=== PATIENT | female | born 1990 | race African-American/Black ===

== ENCOUNTER 2018-12-24 15:54 | Inpatient (IN) ==
[2018-12-24] MEDS ORDERED: LACTATED RINGERS 250 ML IV ONE (16:17)
[2018-12-24] MEDS ORDERED: LACTATED RINGERS 500 ML IV PRN (16:17)
[2018-12-24] MEDS ORDERED: ONDANSETRON 4 MG/2 ML VIAL IV PRN (16:17)
[2018-12-24] MEDS ORDERED: LACTATED RINGERS 1,000 ML IV SCH (16:30)
[2018-12-24 17:21] LABS: Basophils % 0.5 % (0.0-0.8); Eosinophils # 0.3 10*3/uL (0.0-0.87); Eosinophils % 3.6 % (0.00-10.9); Hematocrit 38.9 VOL% (35.7-47.0); Hemoglobin 12.6 GM/DL (12.0-16.0); Immature Granulocytes % 0.2 %; Immature Granulocytes Absolute 0.02 #; Lymphocytes # 2.1 10*3/uL (1.4-4.0); Lymphocytes % 24.7 % (21.3-54.2); Mean Corpuscular HGB Conc 32.4 GM/DL (32-36); Mean Corpuscular Volume 94.4 FL (87-102); Mean Platelet Volume 10.2 FL (9.6-12.0); Monocytes % 9.3 % (1.7-12.7); Neutrophils % 61.7 % (38.7-73.9); Platelet Count 223 T/CUMM (130-400); Red Blood Count 4.12 MC/CUMM (3.8-5.5); Red Cell Distribution Width 13.5 % (9.3-17.3); White Blood Count 8.4 T/CUMM (4-12)
[2018-12-24] MEDS ORDERED: miSOPROStol 200 MCG TABLET ONE (17:46)
[2018-12-24 17:51] LABS: Alanine Aminotransferase 17 U/L (13-56); Albumin 3.3 G/DL (3.4-5.0); Alkaline Phosphatase 65 U/L (45-117); Aspartate Amino Transferase 17 U/L (0-37); Bilirubin,Total < 0.39 MG/DL (0.2-1.0); Blood Urea Nitrogen 10 MG/DL (7-18); Calcium 9.1 MG/DL (8.5-10.1); Glucose 70 MG/DL (74-106); Osmolality,Calculated 271.7 MOS/KG (273-304); Total Protein 7.4 G/DL (6.4-8.3)
[2018-12-24] MEDS ORDERED: miSOPROStol 200 MCG TABLET VAG ONE (18:00)
[2018-12-24] MEDS: BUTORPHANOL 2 MG/ML VIAL IV PRN ×2 (18:11→22:03)
[2018-12-24] MEDS: miSOPROStol 200 MCG TABLET VAG SCH (22:04)
[2018-12-25] MEDS ORDERED: LORazepam 1 MG TABLET PO PRN (00:04)
[2018-12-25] MEDS ORDERED: LORazepam 2 MG/1 ML VIAL IV PRN (00:14)
[2018-12-25] MEDS ORDERED: MEPERIDINE 25 MG/1 ML VIAL ONE ×2 (00:29→02:37)
[2018-12-25] MEDS: MEPERIDINE 50 MG/1 ML VIAL IV PRN ×2 (00:37→02:44)
[2018-12-25] MEDS ORDERED: CLINDAMYCIN INJ 900 MG in PREMIX 1 EACH IV SCH (01:30)
[2018-12-25] MEDS ORDERED: OXYTOCIN/LR 20 UNIT/1,000 ML BAG IV SCH ×2 (02:00→06:00)
[2018-12-25 02:01] LABS: Basophils % 0.3 % (0.0-0.8); Eosinophils # 0.1 10*3/uL (0.0-0.87); Eosinophils % 0.6 % (0.00-10.9); Hematocrit 36.3 VOL% (35.7-47.0); Immature Granulocytes % 0.6 %; Immature Granulocytes Absolute 0.07 #; Lymphocytes # 1.3 10*3/uL (1.4-4.0); Lymphocytes % 10.7 % (21.3-54.2); Mean Corpuscular HGB Conc 33.1 GM/DL (32-36); Mean Corpuscular Volume 92.8 FL (87-102); Mean Platelet Volume 10.3 FL (9.6-12.0); Monocytes % 6.8 % (1.7-12.7); Platelet Count 230 T/CUMM (130-400); Red Blood Count 3.91 MC/CUMM (3.8-5.5); Red Cell Distribution Width 13.3 % (9.3-17.3); White Blood Count 11.8 T/CUMM (4-12)
[2018-12-25] MEDS: miSOPROStol 200 MCG TABLET VAG SCH ×2 (02:01→03:14)
[2018-12-25] MEDS ORDERED: OXYTOCIN/LR 20 UNIT/1,000 ML BAG IV ONE ×2 (02:11→05:41)
[2018-12-25] MEDS ORDERED: CITRIC ACID/SODIUM CITRATE 30 ML UDCUP PO ONE (04:11)
[2018-12-25] MEDS ORDERED: FAMOTIDINE 20 MG/2 ML VIAL IV ONE (04:14)
[2018-12-25] MEDS ORDERED: OXYTOCIN/LR 30 UNIT/1,000 ML BAG IV ONE (04:17)
[2018-12-25] MEDS ORDERED: BISACODYL 10 MG SUPP RECTAL PRN (05:41)
[2018-12-25] MEDS ORDERED: DIPH/TET/ACEL PERT BOOSTER VACCINE 0.5 ML VIAL IM ONE (05:41)
[2018-12-25] MEDS ORDERED: HYDROCORTISONE 2.5% RECTAL CREAM 30 GM TUBE TOP PRN (05:41)
[2018-12-25] MEDS ORDERED: ONDANSETRON 4 MG/2 ML VIAL IV PRN (05:41)
[2018-12-25] MEDS ORDERED: IBUPROFEN 800 MG TABLET PO PRN (05:41)
[2018-12-25] MEDS ORDERED: MEASLES/MUMPS/RUBELLA VACCINE 0.5 ML VIAL SUBCUT ONE (05:41)
[2018-12-25] MEDS ORDERED: RHO(D) IMMUNE GLOBULIN 300 MCG SYRINGE IM ONE (05:41)
[2018-12-25] MEDS ORDERED: LANOLIN 50% CREAM 0.3 OZ TUBE TOP PRN (05:41)
[2018-12-25] MEDS ORDERED: BENZOCAINE 20%/MENTHOL 0.5% SPRAY 56 GM CAN TOP PRN (05:41)
[2018-12-25] MEDS ORDERED: WITCH HAZEL PADS 100/JAR TOP PRN (05:41)
[2018-12-25] MEDS ORDERED: oxyCODONE/ACETAMINOPHEN 5-325 MG TABLET PO PRN ×2 (05:41)
[2018-12-25] MEDS ORDERED: ACETAMINOPHEN 325 MG TABLET PO PRN (05:41)
[2018-12-25] MEDS ORDERED: PROPOFOL 200 MG/20 ML VIAL IV ONE (05:54)
[2018-12-25] MEDS ORDERED: MIDAZOLAM 2 MG/2 ML VIAL ONE (05:55)
[2018-12-25] MEDS ORDERED: KETOROLAC 30 MG/1 ML VIAL ONE (05:55)
[2018-12-25] MEDS ORDERED: DEXAMETHASONE 4 MG/1 ML VIAL ONE (05:55)
[2018-12-25] MEDS ORDERED: ONDANSETRON 4 MG/2 ML VIAL ONE (05:55)
[2018-12-25] MEDS ORDERED: ALBUTEROL 1.25 MG/3 ML NEB RESP TX ONE (06:46)
[2018-12-25] MEDS: DOCUSATE SODIUM 100 MG CAPSULE PO SCH ×2 (10:50→21:30)
[2018-12-26 04:32] LABS: Basophils # 0.1 10*3/uL (0.0-0.2); Basophils % 0.5 % (0.0-0.8); Eosinophils # 0.3 10*3/uL (0.0-0.87); Eosinophils % 3.1 % (0.00-10.9); Hematocrit 32.8 VOL% (35.7-47.0); Hemoglobin 10.5 GM/DL (12.0-16.0); Immature Granulocytes % 0.7 %; Immature Granulocytes Absolute 0.07 #; Lymphocytes # 2.7 10*3/uL (1.4-4.0); Lymphocytes % 26.3 % (21.3-54.2); Mean Corpuscular Volume 95.6 FL (87-102); Mean Platelet Volume 10.3 FL (9.6-12.0); Monocytes % 5.7 % (1.7-12.7); Neutrophils % 63.7 % (38.7-73.9); Platelet Count 196 T/CUMM (130-400); Red Blood Count 3.43 MC/CUMM (3.8-5.5); Red Cell Distribution Width 13.4 % (9.3-17.3); White Blood Count 10.3 T/CUMM (4-12)
[2018-12-26] MEDS: DOCUSATE SODIUM 100 MG CAPSULE PO SCH (09:35)
[2018-12-26 11:08] VITALS: BP 94/55
== END 2018-12-26 14:10 | disposition home or self-care (01) | DRG 541 ==
LOC: N.LDOUT 15:54 → N.LD 15:54 → N.OB 12-25 06:44
PROVIDERS: ADMIT Obstetrics & Gynecology; ATTEND Obstetrics & Gynecology

== ENCOUNTER 2020-03-29 14:27 | Inpatient (IN) ==
[2020-03-29] MEDS ORDERED: DINOPROSTONE VAG GEL 10 MG SYRINGE VAG ONE ×2 (14:39→14:55)
[2020-03-29] MEDS ORDERED: BUTORPHANOL 2 MG/ML VIAL IV PRN (14:51)
[2020-03-29] MEDS ORDERED: ONDANSETRON 4 MG/2 ML VIAL IV PRN (14:51)
[2020-03-29] MEDS ORDERED: MEPERIDINE 50 MG/1 ML VIAL IV PRN (14:51)
[2020-03-29 15:11] LABS: Basophils % 0.4 % (0.0-0.8); Eosinophils # 0.2 10*3/uL (0.0-0.87); Eosinophils % 2.1 % (0.00-10.9); Hematocrit 37.8 VOL% (35.7-47.0); Hemoglobin 12.3 GM/DL (12.0-16.0); Immature Granulocytes Absolute 0.11 #; Lymphocytes # 1.6 10*3/uL (1.4-4.0); Mean Corpuscular HGB Conc 32.5 GM/DL (32-36); Mean Corpuscular Volume 90.4 FL (87-102); Mean Platelet Volume 11.4 FL (9.6-12.0); Monocytes % 6.5 % (1.7-12.7); Platelet Count 188 T/CUMM (130-400); Red Blood Count 4.18 MC/CUMM (3.8-5.5); Red Cell Distribution Width 15.6 % (9.3-17.3); White Blood Count 10.6 T/CUMM (4-12)
[2020-03-29] MEDS ORDERED: OXYTOCIN/LR 0 UNIT/0 ML BAG IV ONE (20:53)
[2020-03-30] MEDS: LACTATED RINGERS 1,000 ML IV SCH ×2 (01:55→04:56)
[2020-03-30] MEDS ORDERED: OXYTOCIN/LR 20 UNIT/1,000 ML BAG IV SCH (02:00)
[2020-03-30] MEDS ORDERED: PROMETHAZINE 25 MG/1 ML VIAL IM ONE (04:33)
[2020-03-30] MEDS ORDERED: diphenhydrAMINE 50 MG/1 ML VIAL IV PRN ×2 (04:33)
[2020-03-30] MEDS ORDERED: CITRIC ACID/SODIUM CITRATE 30 ML UDCUP PO ONE (04:33)
[2020-03-30] MEDS ORDERED: NALOXONE 0.4 MG/ML VIAL IV PRN (04:33)
[2020-03-30] MEDS ORDERED: hydrOXYzine HCL 25 MG/1 ML VIAL IM PRN (04:33)
[2020-03-30] MEDS ORDERED: FAMOTIDINE 20 MG/2 ML VIAL IV ONE (04:33)
[2020-03-30] MEDS ORDERED: fentaNYL 2 MCG/ROPIV 0.2% EPID 100 ML EPIDURAL SCH (05:00)
[2020-03-30 06:04] LABS: Apearance,Urine CLEAR (Clear); Bacteria,Urine Occasional /HPF (Few); Bilirubin,Urine Negative (Negative); Blood, Urine Negative (Negative); Glucose,Urine (UA) Negative (Negative); Ketones,Urine Negative (Negative); Mucus,Urine Occasional /LPF (Occasional); Nitrite,Urine Negative (Negative); Protein,Urine Negative; RBC,Urine <1 /HPF (0-4); Squamous Epithelial Cell,Urine Occasional /HPF (0-10); Urine Color Yellow (Yellow); Urine Urobilinogen < 2.0 EU/DL (0.2-1.0); WBC,Urine <1 /HPF (0-6)
[2020-03-30] MEDS: ePHEDrine 50 MG/ML VIAL IV PRN ×2 (06:15→06:20)
[2020-03-30] MEDS ORDERED: OXYTOCIN/LR 20 UNIT/1,000 ML BAG IV ONE ×2 (07:19→11:53)
[2020-03-30] MEDS ORDERED: TRANEXAMIC ACID 1,000 MG/10 ML VIAL ONE (07:19)
[2020-03-30] MEDS ORDERED: miSOPROStoL 200 MCG TABLET ONE (07:19)
[2020-03-30] MEDS ORDERED: METHYLERGONOVINE 0.2 MG/1 ML AMP ONE (07:20)
[2020-03-30] MEDS ORDERED: CARBOPROST TROMETHAMINE 250 MCG/ML AMP IM ONE (07:20)
[2020-03-30] MEDS ORDERED: LIDOCAINE 1% 50 ML VIAL ONE (07:20)
[2020-03-30] MEDS ORDERED: RHO(D) IMMUNE GLOBULIN 300 MCG SYRINGE IM ONE (11:53)
[2020-03-30] MEDS ORDERED: WITCH HAZEL PADS 100/JAR TOP PRN (11:53)
[2020-03-30] MEDS ORDERED: BENZOCAINE 20%/MENTHOL 0.5% SPRAY 56 GM CAN TOP PRN (11:53)
[2020-03-30] MEDS ORDERED: DIPH/TET/ACEL PERT BOOSTER VACCINE 0.5 ML VIAL IM ONE (11:53)
[2020-03-30] MEDS ORDERED: ACETAMINOPHEN 325 MG TABLET PO PRN (11:53)
[2020-03-30] MEDS ORDERED: HYDROCORTISONE 2.5% RECTAL CREAM 30 GM TUBE TOP PRN (11:53)
[2020-03-30] MEDS ORDERED: oxyCODONE/ACETAMINOPHEN 5-325 MG TABLET PO PRN (11:53)
[2020-03-30] MEDS ORDERED: LANOLIN 50% CREAM 0.3 OZ TUBE TOP PRN (11:53)
[2020-03-30] MEDS ORDERED: BISACODYL 10 MG SUPP RECTAL PRN (11:53)
[2020-03-30] MEDS ORDERED: MEASLES/MUMPS/RUBELLA VACCINE 0.5 ML VIAL SUBCUT ONE (11:53)
[2020-03-30] MEDS: IBUPROFEN 800 MG TABLET PO PRN ×3 (12:06→23:59)
[2020-03-30] MEDS: oxyCODONE/ACETAMINOPHEN 5-325 MG TABLET PO PRN ×2 (18:28→23:59)
[2020-03-30] MEDS: DOCUSATE SODIUM 100 MG CAPSULE PO SCH (20:22)
[2020-03-31 05:56] LABS: Basophils # 0.1 10*3/uL (0.0-0.2); Basophils % 0.4 % (0.0-0.8); Eosinophils # 0.4 10*3/uL (0.0-0.87); Eosinophils % 3.4 % (0.00-10.9); Hematocrit 34.5 VOL% (35.7-47.0); Hemoglobin 11.1 GM/DL (12.0-16.0); Immature Granulocytes Absolute 0.12 #; Lymphocytes # 2.5 10*3/uL (1.4-4.0); Lymphocytes % 20.6 % (21.3-54.2); Mean Corpuscular HGB Conc 32.2 GM/DL (32-36); Mean Corpuscular Volume 91.8 FL (87-102); Mean Platelet Volume 11.5 FL (9.6-12.0); Monocytes % 6.6 % (1.7-12.7); Platelet Count 158 T/CUMM (130-400); Red Blood Count 3.76 MC/CUMM (3.8-5.5); Red Cell Distribution Width 15.7 % (9.3-17.3); White Blood Count 12.2 T/CUMM (4-12)
[2020-03-31] MEDS: DOCUSATE SODIUM 100 MG CAPSULE PO SCH ×3 (09:11→22:39)
[2020-03-31] MEDS: IBUPROFEN 800 MG TABLET PO PRN ×2 (09:12→19:33)
[2020-04-01 08:39] VITALS: BP 110/61
[2020-04-01] MEDS: DOCUSATE SODIUM 100 MG CAPSULE PO SCH (09:15)
== END 2020-04-01 13:15 | disposition home or self-care (01) | DRG 560 ==
LOC: N.LDOUT 14:27 → N.LD 14:30 → N.OB 03-30 13:01
PROVIDERS: ADMIT Obstetrics & Gynecology; ATTEND Obstetrics & Gynecology

== ENCOUNTER 2022-08-08 04:36 | Inpatient (IN) ==
[2022-08-08] MEDS ORDERED: LACTATED RINGERS 500 ML IV PRN (04:41)
[2022-08-08] MEDS ORDERED: miSOPROStoL 200 MCG TABLET RECTAL PRN (04:41)
[2022-08-08] MEDS ORDERED: ONDANSETRON 4 MG/2 ML VIAL IV PRN ×2 (04:41→09:20)
[2022-08-08] MEDS ORDERED: CARBOPROST TROMETHAMINE 250 MCG/ML AMP IM PRN (04:41)
[2022-08-08] MEDS ORDERED: TRANEXAMIC ACID 1,000 MG in SODIUM CHLORIDE 0.9% 100 ML IV PRN (04:41)
[2022-08-08] MEDS ORDERED: METHYLERGONOVINE 0.2 MG/1 ML AMP IM PRN (04:41)
[2022-08-08] MEDS ORDERED: OXYTOCIN/LR 20 UNIT/1,000 ML BAG IV ONE ×3 (04:41→09:20)
[2022-08-08] MEDS: LACTATED RINGERS 1,000 ML IV SCH ×2 (04:50→05:37)
[2022-08-08] MEDS ORDERED: NALOXONE 0.4 MG/ML VIAL IV PRN (04:51)
[2022-08-08] MEDS ORDERED: hydrOXYzine HCL 25 MG/1 ML VIAL IM PRN (04:51)
[2022-08-08] MEDS ORDERED: ePHEDrine 50 MG/ML VIAL IV PRN ×2 (04:51)
[2022-08-08] MEDS ORDERED: CITRIC ACID/SODIUM CITRATE 30 ML UDCUP PO ONE (04:51)
[2022-08-08] MEDS ORDERED: FAMOTIDINE 20 MG/2 ML VIAL IV ONE (04:51)
[2022-08-08] MEDS ORDERED: diphenhydrAMINE 50 MG/1 ML VIAL IV PRN ×2 (04:51)
[2022-08-08] MEDS ORDERED: ONDANSETRON 4 MG/2 ML VIAL IV ONE (04:51)
[2022-08-08] MEDS ORDERED: PROMETHAZINE 25 MG/1 ML VIAL IM ONE (04:51)
[2022-08-08] MEDS ORDERED: OXYTOCIN/LR 20 UNIT/1,000 ML BAG IV SCH (05:00)
[2022-08-08] MEDS ORDERED: fentaNYL 2 MCG/ROPIV 0.2% EPID 100 ML EPIDURAL SCH (05:00)
[2022-08-08 05:04] LABS: Basophils % 0.3 % (0.0-0.8); Eosinophils # 0.2 10*3/uL (0.0-0.87); Hematocrit 37.5 VOL% (35.7-47.0); Hemoglobin 12.5 GM/DL (12.0-16.0); Lymphocytes # 2.2 10*3/uL (1.4-4.0); Lymphocytes % 23.3 % (21.3-54.2); Mean Corpuscular HGB Conc 33.3 GM/DL (32-36); Mean Corpuscular Volume 88.9 FL (87-102); Mean Platelet Volume 11.7 FL (9.6-12.0); Monocytes # 0.8 10*3/uL (0.11-0.8); Monocytes % 8.1 % (1.7-12.7); Neutrophils % 65.3 % (38.7-73.9); Platelet Count 163 T/CUMM (130-400); Red Blood Count 4.22 MC/CUMM (3.8-5.5); Red Cell Distribution Width 14.7 % (9.3-17.3); White Blood Count 9.6 T/CUMM (4-12)
[2022-08-08] MEDS ORDERED: MEPERIDINE 50 MG/1 ML VIAL IV ONE (05:15)
[2022-08-08] MEDS ORDERED: METHYLERGONOVINE 0.2 MG/1 ML AMP ONE (07:42)
[2022-08-08] MEDS ORDERED: SODIUM CHLORIDE 0.9% 0 ML IV ONE (07:42)
[2022-08-08] MEDS ORDERED: TRANEXAMIC ACID 1,000 MG/10 ML VIAL ONE (07:42)
[2022-08-08] MEDS ORDERED: CARBOPROST TROMETHAMINE 250 MCG/ML AMP IM ONE (07:42)
[2022-08-08] MEDS ORDERED: miSOPROStoL 200 MCG TABLET ONE (07:42)
[2022-08-08] MEDS ORDERED: OXYTOCIN/LR 30 UNIT/1,000 ML BAG IV ONE (07:48)
[2022-08-08 09:13] LABS: Cord Venous Blood PCO2 36.2 MMHG; Cord Venous Blood PO2 47.1
[2022-08-08 09:15] LABS: Cord Arterial Blood HCO3 21.6 MMOL/L
[2022-08-08] MEDS ORDERED: HYDROCORTISONE 2.5% RECTAL CREAM 30 GM TUBE TOP PRN (09:20)
[2022-08-08] MEDS ORDERED: LANOLIN 50% CREAM 0.3 OZ TUBE TOP PRN (09:20)
[2022-08-08] MEDS ORDERED: oxyCODONE/ACETAMINOPHEN 5-325 MG TABLET PO PRN (09:20)
[2022-08-08] MEDS ORDERED: RHO(D) IMMUNE GLOBULIN 300 MCG SYRINGE IM ONE (09:20)
[2022-08-08] MEDS ORDERED: DIPH/TET/ACEL PERT BOOSTER VACCINE 0.5 ML VIAL IM ONE (09:20)
[2022-08-08] MEDS ORDERED: MEASLES/MUMPS/RUBELLA VACCINE 0.5 ML VIAL SUBCUT ONE (09:20)
[2022-08-08] MEDS ORDERED: BENZOCAINE 20%/MENTHOL 0.5% SPRAY 56 GM CAN TOP PRN (09:20)
[2022-08-08] MEDS ORDERED: WITCH HAZEL PADS 100/JAR TOP PRN (09:20)
[2022-08-08] MEDS ORDERED: ACETAMINOPHEN 325 MG TABLET PO PRN (09:20)
[2022-08-08] MEDS ORDERED: BISACODYL 10 MG SUPP RECTAL PRN (09:20)
[2022-08-08] MEDS: oxyCODONE/ACETAMINOPHEN 5-325 MG TABLET PO PRN (14:59)
[2022-08-08] MEDS: DOCUSATE SODIUM 100 MG CAPSULE PO SCH (20:30)
[2022-08-08] MEDS: IBUPROFEN 800 MG TABLET PO PRN (20:30)
[2022-08-09 04:32] LABS: Basophils % 0.2 % (0.0-0.8); Eosinophils # 0.3 10*3/uL (0.0-0.87); Eosinophils % 2.5 % (0.00-10.9); Hematocrit 34.2 VOL% (35.7-47.0); Hemoglobin 11.2 GM/DL (12.0-16.0); Immature Granulocytes % 0.6 %; Immature Granulocytes Absolute 0.07 #; Lymphocytes % 17.6 % (21.3-54.2); Mean Corpuscular HGB Conc 32.7 GM/DL (32-36); Mean Platelet Volume 10.9 FL (9.6-12.0); Monocytes # 0.7 10*3/uL (0.11-0.8); Monocytes % 6.5 % (1.7-12.7); Neutrophils % 72.6 % (38.7-73.9); Platelet Count 153 T/CUMM (130-400); Red Cell Distribution Width 14.9 % (9.3-17.3); White Blood Count 11.4 T/CUMM (4-12)
[2022-08-09] MEDS: oxyCODONE/ACETAMINOPHEN 5-325 MG TABLET PO PRN ×2 (06:01→13:25)
[2022-08-09] MEDS: DOCUSATE SODIUM 100 MG CAPSULE PO SCH ×2 (08:07→21:50)
[2022-08-09] MEDS: IBUPROFEN 800 MG TABLET PO PRN (21:50)
[2022-08-10 08:01] VITALS: BP 117/57
[2022-08-10] MEDS: DOCUSATE SODIUM 100 MG CAPSULE PO SCH (08:18)
[2022-08-10] MEDS ORDERED: DIPH/TET/ACEL PERT BOOSTER VACCINE 0.5 ML VIAL IM ONE (10:26)
== END 2022-08-10 13:33 | disposition home or self-care (01) | DRG 560 ==
LOC: N.LDOUT 04:36 → N.LD 04:39 → N.OB 12:15
PROVIDERS: ADMIT Obstetrics & Gynecology; ATTEND Obstetrics & Gynecology